=== PATIENT | female | born 2000 | race American Indian/Alaskan Native ===

== ENCOUNTER 2022-03-30 14:37 | Outpatient (CLI) | payer BC, MEDICAID ==
[2022-03-30] MEDS ORDERED: LACTATED RINGERS 1,000 ML IV ONE (15:04)
[2022-03-30 15:42] LABS: Hematocrit 29.2 % (30.3-42.9); Hemoglobin 9.9 gm/dl (10.1-14.3); Mean Corpuscular HGB Conc 34 % (30-34); Mean Corpuscular Volume 89 fl (79-97); Platelet Count 219 K/mm3 (140-440); Red Blood Count 3.27 M/mm3 (3.65-5.03); Red Cell Distribution Width 12.9 % (13.2-15.2)
[2022-03-30 15:58] LABS: Alanine Aminotransferase 11 units/L (7-56)
[2022-03-30] MEDS ORDERED: ACETAMINOPHEN 500 MG TAB PO ONE (16:00)
[2022-03-30 16:03] LABS: Bacteria,Urine 4+ /HPF (Negative)
[2022-03-30 16:07] LABS: Bilirubin,Urine Negative (Negative); Blood,Urine Negative (Negative); Color,Urine Straw (Yellow); PH,Urine 7.5 (5.0-7.0); Protein,Urine <15 mg/dL mg/dL (Negative); Urobilinogen,Urine < 2.0 mg/dL (<2.0)
[2022-03-30 16:49] VITALS: BP 116/63
== END 2022-03-30 17:12 | disposition home or self-care (01) ==
LOC: APU 14:37 → TRG 14:37
PROVIDERS: ATTEND Obstetrics & Gynecology
DX: O13.3 Gestational [pregnancy-induced] hypertension without significant proteinuria, third trimester (principal); Z3A.34 34 weeks gestation of pregnancy
CPT/HCPCS: 36415; 59025; 81001; 82565; 83615; 84450; 84460; 84550; 85027; 87086

== ENCOUNTER 2022-05-08 08:33 | Inpatient (IN) | payer BC, MEDICAID ==
--- NOTE | 2022-05-08 08:55 | History and Physical Report ---
History of Present Illness Date of examination: 05/08/22 Date of admission: 05/08/2022 Chief complaint: IOL History of present illness: Pt is a @ 39.4 wks who presented to L&D for IOL d/t cHTN. She has been followed by [facility]. Her blood pressures have been normotensive. She had a baseline 24 hr urine on 10/02/21 that resulted as 106. Her last BPP and growth scan on May 04: BPP 8/8, EFW 32% (7-2). Also there was pyelectasis noted and will need f/u with urology after delivery. EDC Confirmation: 05/11/2022 Gestational Age: 39.4 weeks on admission Past History : 2 Term Births: 1 Premature Births: 0 Living Children: 1 Para: 1 Mult. Births: 0 Prev : 0 Aborta: 0 Elect. Ab: 0 Spont. Ab: 0 Ectopics: 0 She # 1 Delivery date: 2018 Weeks Gestation: 39 labor: no Delivery type: Hours of labor: ? Anesthesia type: epidural Delivery location: [place] Sex: Female weight: 6-9 Comments: Possible pre eclampsia? Past Medical History: Reviewed and updated today: Hypertension per [facility] Past Surgical History: Reviewed and updated today: negative Family History Summary: First Degree Blood Relative - Has No Known Family History - Entered On: 10/28/2021 Social History: Patient is single Smoking History: Patient has never smoked. Risk Factors: Smoked Tobacco Use: Never smoker Smokeless Tobacco Use: Never Counseled to Quit/Cut Down: yes Passive Smoke Exposure: no HIV High Risk Behavior: low risk Caffeine Use: 0 drinks per day Exercise: no Seatbelt Use: preg-work counselor % Sun Exposure: occasionally Family History Risk Factors: Family History of WA in 1 Female Relative Age < 65: no Family History of [place] in 1 Male Relative Age < 55: no No Dietary Counseling Reason: pn yes PAP Smear History: Date of Last PAP Smear: 09/30/2021 Results: Normal Alcohol Use: no Past Medical History Anesthesia Complications: negative Anemia: negative Autoimmune Disorder: negative Bleeding Disorder: negative Blood Transfusions: negative Breast Disease: negative Diabetes: negative Heart Disease: negative Hypertension: negative Hepatitis/Liver Disease: negative Kidney Disease/UTI: negative Neurologic/Epilepsy/Migraines: negative Phlebitis/Varicosities: negative Psychiatric: negative Pulmonary Disease/Asthma: negative Thyroid Disease: negative Hospitalizations: negative Surgery (Non-line assigner): negative Abnormal PAP: negative MARTHA Exposure: negative Infertility: negative Uterine Anomaly: negative Uterine Surgery (not C/S): negative Other Gynecologic Problems: negative Social Hx: Patient is single Smoking History: Patient has never smoked. Infection History Hx of STD: none HIV Risk Eval: low risk Hepatitis B Risk Eval: low risk Personal hx. of genital herpes: no Partner hx. of genital herpes: no Rash, Viral, or Febrile illness since last LMP? no Varicella/Chicken Pox Status: No TB Risk: no Genetic History Congenital Heart Defect: Mom: no Dad: no Audi Disease: Mom: no Dad: no Thalassemia Mom: no Dad: no Neural Tube Defect Mom: no Dad: no Down's Syndrome Mom: no Dad: no Rolly-Sachs Mom: no Dad: no Sickle Cell Disease/Trait Mom: no Dad: no Hemophilia Mom: no Dad: no Muscular Dystrophy Mom: no Dad: no Cystic Fibrosis Mom: no Dad: no Alireza Chorea Mom: no Dad: no Mental Retardation Mom: no Dad: no Fragile X Mom: no Dad: no Other Genetic/Chromosomal Disorder Mom: no Dad: no Child w/other defect Mom: no Dad: no Enviromental Exposures Xray Exposure: no Medication, drug, or alcohol use since LMP: no Chemical/Other Exposure: no Exposure to Cat Liter: no Hx of Parvovirus (Fifth Disease): no Occupational Exposure to Children: none Current Allergies: No known allergies Past History Past Medical History: hypertension, other (Pre-eclampsia) Past Surgical History: no surgical history Family/Genetic History: none Social history: no significant social history - Obstetrical History Expected Date of Delivery: 05/11/22 Actual Gestation: 39 Week(s) 4 Day(s) : 2 Para: 1 Hx # Term Pregnancies: 1 Number of Pregnancies: 0 Spontaneous Abortions: 0 Induced : 0 Number of Living Children: 1 Medications and Allergies Allergies Allergy/AdvReac Type Severity Reaction Status Date / Time No Known Allergies Allergy Verified 05/08/22 12:03 Review of Systems All systems: negative - Physical Exam Cardiovascular: Regular rate Lungs: Positive: Normal air movement Abdomen: Positive: normal appearance, soft Uterus: Positive: enlarged (Normal size for 39.4 wk gestation.) Extremities: Positive: normal - Obstetrical FHR: category 1 Uterine Contraction Monitor Mode: External Cervical Dilatation: 1 (Per RN taking care of patient. ) Cervical Effacement Percentage: 50 station: -3 Uterine Contraction Pattern: Absent Results Result Diagrams: 05/08/22 12:50 05/08/22 12:50 All other labs normal. GBS NEGATIVE Blood Type: O (09/30/2021) Rh Type: positive (09/30/2021) Rh Antibody Screen: negative (09/30/2021) Hgb: 12 (09/30/2021) Hct: 36 (09/30/2021) Platelets: 275 (09/30/2021) Rubella: immune (09/30/2021) RPR: nonreactive (09/30/2021) Hep B Surface Antigen: negative (09/30/2021) HIV: negative (09/30/2021) Pap Smear: Normal (09/30/2021) Varicella Ab: positive (09/30/2021) Hepatitis C: negative (09/30/2021) Uric acid: 2.9 (09/30/2021) 24 hour urine result from 10/02/2021: 106 Assessment and Plan A: 21 y.o. @ 39.4 wks, IOL d/t cHTN. - Patient Problems (1) Hypertension affecting Current Visit: Yes Status: Acute Qualifiers: Trimester: third trimester Qualified Code(s): O16.3 - Unspecified maternal hypertension, third trimester Plan to address problem: Obtain Pre-eclampsia labs. Monitor blood pressures. Continue to monitor for s/sx of Pre-eclampsia. Anti-hypertensive medications and magnesium infusion to be considered if persistent severe range blood pressures and pt becomes symptomatic. (2) with 39 completed weeks gestation Current Visit: Yes Status: Acute Plan to address problem: Admit to Labor and Delivery. Initiate IV. Draw admission labs. Pain management: IV pain medication and epidural when pt desires. Anticipate . (3) Pyelectasis of fetus on ultrasound Current Visit: Yes Status: Acute Plan to address problem: will need urology f/u after delivery. NICU called and aware.
[2022-05-08] MEDS ORDERED: miSOPROStol 200 MCG TAB PR PRN (09:00)
[2022-05-08] MEDS ORDERED: BUTORPHANOL 2 MG/1 ML INJ IV PRN (09:00)
[2022-05-08] MEDS ORDERED: OXYTOCIN 10 UNIT/1 ML INJ IM PRN (09:00)
[2022-05-08] MEDS ORDERED: OXYTOCIN DRIP 30 UNITS/500 ML BAG IV SCH ×2 (09:00)
[2022-05-08] MEDS ORDERED: ACETAMINOPHEN 325 MG TAB PO PRN (09:00)
[2022-05-08] MEDS ORDERED: NALOXONE 0.4 MG/1 ML INJ IV PRN (09:00)
[2022-05-08] MEDS ORDERED: TERBUTALINE 1 MG/1 ML INJ SUB-Q PRN (09:00)
[2022-05-08] MEDS ORDERED: LIDOCAINE (2%) 20 MG/1 ML VIAL 20 ML MDV INFILTRATI NR (09:00)
[2022-05-08] MEDS ORDERED: ONDANSETRON 4 MG/2 ML INJ IV PRN (09:00)
[2022-05-08] MEDS ORDERED: PROMETHAZINE 25 MG TAB PO PRN (09:00)
[2022-05-08] MEDS ORDERED: LACTATED RINGERS 1,000 ML IV SCH (09:00)
[2022-05-08] MEDS ORDERED: ePHEDrine SULFATE 50 MG/1 ML INJ IV PRN (09:00)
[2022-05-08] MEDS ORDERED: CARBOPROST TROMETHAMINE 250 MCG/1 ML INJ IM PRN (09:00)
[2022-05-08] MEDS ORDERED: LOPERAMIDE 2 MG CAP PO PRN (09:00)
[2022-05-08 13:06] LABS: Hemoglobin 9.1 gm/dl (10.1-14.3); Mean Corpuscular HGB Conc 35 % (30-34); Mean Corpuscular Volume 86 fl (79-97); Platelet Count 246 K/mm3 (140-440); Red Blood Count 3.01 M/mm3 (3.65-5.03)
[2022-05-08 13:10] LABS: Bacteria,Urine 1+ /HPF (Negative); Mucus,Urine FEW /HPF; RBC,Urine < 1.0 /HPF (0.0-6.0)
--- NOTE | 2022-05-08 13:16 | Event Note ---
Date: 05/08/22 Explained IOL process and why delayed. There have been several emergencies on L&D today. Will allow pt to eat meal and place Cervidil at 1700. Her cervical exam /. Pt verbalized understanding and agrees to this plan. RN getting patient a meal to eat.
[2022-05-08 13:29] LABS: Alanine Aminotransferase 12 units/L (7-56); Uric Acid 4.6 mg/dL (3.5-7.6)
[2022-05-08 13:40] LABS: Bilirubin,Urine Negative (Negative); Blood,Urine Negative (Negative); Color,Urine Straw (Yellow); Urobilinogen,Urine < 2.0 mg/dL (<2.0)
[2022-05-08] MEDS ORDERED: DINOPROSTONE 10 MG VAG SUPP VG ONE (17:00)
[2022-05-08] MEDS ORDERED: MINERAL OIL 30 ML ORAL LIQD PO PRN (22:00)
[2022-05-09] MEDS: fentaNYL 100 MCG/2 ML INJ IV PRN ×2 (01:03→03:17)
[2022-05-09] MEDS ORDERED: LACTATED RINGERS 1,000 ML IV SCH (04:45)
[2022-05-09] MEDS ORDERED: NALOXONE 0.4 MG/1 ML INJ IV PRN (05:08)
[2022-05-09] MEDS ORDERED: ePHEDrine SULFATE 50 MG/1 ML INJ IV PRN (05:08)
--- NOTE | 2022-05-09 05:37 | Anesthesia Consultation ---
Anesthesia Consult and Med Hx - Airway Anesthetic Teeth Evaluation: Good ROM Head & Neck: Adequate Mental/Hyoid Distance: Adequate Mallampati Class: Class II Intubation Access Assessment: Probably Good - Pulmonary Exam CTA: Yes - Cardiac Exam Cardiac Exam: RRR - Pre-Operative Health Status ASA Pre-Surgery Classification: ASA2 Proposed Anesthetic Plan: Epidural - Pulmonary Hx Smoking: Yes Hx Asthma: No - Cardiovascular System Hx Hypertension: Yes (2018 preeclampasia) - Central Nervous System Hx Seizures: No Hx Psychiatric Problems: No - Endocrine Hx Renal Disease: No Hx Hypothyroidism: No Hx Hyperthyroidism: No - Hematic Hx Anemia: No Hx Sickle Cell Disease: No - Other Systems Hx Alcohol Use: No
--- NOTE | 2022-05-09 05:38 | Anesthesia Day of Surgery ---
Anesthesia Day of Surgery - Day of Surgery Patient Examined: Yes Patient H&P Reviewed: Yes Patient is NPO: Yes Beta Blockers: No Cardiac Clearance: No Pulmonary Clearance: No Deuce's Test: N/A
[2022-05-09] MEDS ORDERED: fentaNYL-BUPIV 2 MCG/ML-0.125% 200 MCG/100 ML BAG EPIDURAL SCH (06:00)
--- NOTE | 2022-05-09 07:49 | Progress Note ---
Assessment and Plan A: 21 y.o. @ 39.5 wks. IOL d/t cHTN. AROM. - Patient Problems (1) Hypertension affecting Current Visit: Yes Status: Acute Qualifiers: Trimester: third trimester Qualified Code(s): O16.3 - Unspecified maternal hypertension, third trimester Plan to address problem: Continue to monitor blood pressures. Continue to monitor for s/sx of Pre-eclampsia. (2) with 39 completed weeks gestation Current Visit: Yes Status: Acute Plan to address problem: Continue to monitor progress of labor. Will consider Pitocin if contractions space out. (3) Pyelectasis of fetus on ultrasound Current Visit: Yes Status: Acute Plan to address problem: NICU aware. Subjective - Subjective Date of service: 05/09/22 Principal diagnosis: IUP @ 39.5 wks, IOL d/t cHTN, labor Interval history: Pt comfortable with epidural. Discussed AROM and pt agrees to AROM at this time. Pt denies s/sx of Pre-eclampsia. Objective - Vital Signs Vital Signs: Vital Signs - 12hr 05/08/22 05/08/22 05/08/22 19:49 19:54 19:59 Temperature Pulse Rate 116 H 109 H 107 H Respiratory Rate Blood Pressure Blood Pressure [Right] O2 Sat by Pulse 96 96 97 Oximetry O2 Sat by Pulse Oximetry [ Bilateral] 05/08/22 05/08/22 05/08/22 20:04 20:09 20:14 Temperature Pulse Rate 106 H 106 H 111 H Respiratory Rate Blood Pressure Blood Pressure [Right] O2 Sat by Pulse 97 97 97 Oximetry O2 Sat by Pulse Oximetry [ Bilateral] 05/08/22 05/08/22 05/08/22 20:17 20:18 20:19 Temperature 98.5 F Pulse Rate 113 H 110 H Respiratory 17 Rate Blood Pressure 143/96 Blood Pressure [Right] O2 Sat by Pulse 97 96 Oximetry O2 Sat by Pulse 96 Oximetry [ Bilateral] 05/08/22 05/08/22 05/08/22 20:23 20:24 20:29 Temperature Pulse Rate 102 H 108 H 107 H Respiratory Rate Blood Pressure 131/73 Blood Pressure [Right] O2 Sat by Pulse 97 96 Oximetry O2 Sat by Pulse Oximetry [ Bilateral] 05/08/22 05/08/22 05/08/22 20:34 20:47 20:48 Temperature Pulse Rate 108 H 114 H 122 H Respiratory Rate Blood Pressure Blood Pressure [Right] O2 Sat by Pulse 96 95 94 Oximetry O2 Sat by Pulse Oximetry [ Bilateral] 05/08/22 05/08/22 05/08/22 20:52 20:57 21:02 Temperature Pulse Rate 107 H 115 H 109 H Respiratory Rate Blood Pressure Blood Pressure [Right] O2 Sat by Pulse 96 97 96 Oximetry O2 Sat by Pulse Oximetry [ Bilateral] 05/08/22 05/08/22 05/08/22 21:07 21:12 21:17 Temperature Pulse Rate 103 H 107 H 108 H Respiratory Rate Blood Pressure Blood Pressure [Right] O2 Sat by Pulse 96 97 97 Oximetry O2 Sat by Pulse Oximetry [ Bilateral] 05/08/22 05/08/22 05/08/22 21:22 21:27 21:32 Temperature Pulse Rate 104 H 100 H 107 H Respiratory Rate Blood Pressure Blood Pressure [Right] O2 Sat by Pulse 96 97 96 Oximetry O2 Sat by Pulse Oximetry [ Bilateral] 05/08/22 05/08/22 05/08/22 21:37 21:42 21:44 Temperature Pulse Rate 101 H 102 H 97 H Respiratory Rate Blood Pressure Blood Pressure [Right] O2 Sat by Pulse 97 96 94 Oximetry O2 Sat by Pulse Oximetry [ Bilateral] 05/08/22 05/08/22 05/08/22 21:48 21:53 21:55 Temperature Pulse Rate 109 H 101 H 97 H Respiratory Rate Blood Pressure Blood Pressure [Right] O2 Sat by Pulse 97 95 94 Oximetry O2 Sat by Pulse Oximetry [ Bilateral] 05/08/22 05/08/22 05/08/22 21:58 22:03 22:06 Temperature Pulse Rate 100 H 101 H 91 H Respiratory Rate Blood Pressure Blood Pressure [Right] O2 Sat by Pulse 95 95 92 Oximetry O2 Sat by Pulse Oximetry [ Bilateral] 05/08/22 05/08/22 05/08/22 22:08 22:13 22:16 Temperature Pulse Rate 107 H 105 H 101 H Respiratory Rate Blood Pressure Blood Pressure [Right] O2 Sat by Pulse 95 95 94 Oximetry O2 Sat by Pulse Oximetry [ Bilateral] 05/08/22 05/08/22 05/08/22 22:18 22:23 22:26 Temperature Pulse Rate 94 H 97 H 97 H Respiratory Rate Blood Pressure Blood Pressure [Right] O2 Sat by Pulse 95 95 94 Oximetry O2 Sat by Pulse Oximetry [ Bilateral] 05/08/22 05/08/22 05/08/22 22:28 22:33 22:38 Temperature Pulse Rate 96 H 95 H 91 H Respiratory Rate Blood Pressure Blood Pressure [Right] O2 Sat by Pulse 95 95 95 Oximetry O2 Sat by Pulse Oximetry [ Bilateral] 05/08/22 05/08/22 05/08/22 22:42 22:43 22:48 Temperature Pulse Rate 96 H 92 H 90 Respiratory Rate Blood Pressure Blood Pressure [Right] O2 Sat by Pulse 94 96 96 Oximetry O2 Sat by Pulse Oximetry [ Bilateral] 05/08/22 05/08/22 05/08/22 22:52 22:53 22:58 Temperature Pulse Rate 93 H 91 H 102 H Respiratory Rate Blood Pressure Blood Pressure [Right] O2 Sat by Pulse 94 95 96 Oximetry O2 Sat by Pulse Oximetry [ Bilateral] 05/08/22 05/08/22 05/08/22 22:59 23:03 23:08 Temperature Pulse Rate 108 H 88 92 H Respiratory Rate Blood Pressure Blood Pressure [Right] O2 Sat by Pulse 92 96 96 Oximetry O2 Sat by Pulse Oximetry [ Bilateral] 05/08/22 05/08/22 05/08/22 23:13 23:17 23:18 Temperature Pulse Rate 96 H 100 H 97 H Respiratory Rate Blood Pressure Blood Pressure [Right] O2 Sat by Pulse 96 94 95 Oximetry O2 Sat by Pulse Oximetry [ Bilateral] 05/08/22 05/08/22 05/08/22 23:23 23:25 23:36 Temperature Pulse Rate 98 H 92 H 104 H Respiratory Rate Blood Pressure Blood Pressure [Right] O2 Sat by Pulse 95 94 96 Oximetry O2 Sat by Pulse Oximetry [ Bilateral] 05/08/22 05/08/22 05/08/22 23:41 23:46 23:47 Temperature Pulse Rate 91 H 89 93 H Respiratory Rate Blood Pressure Blood Pressure [Right] O2 Sat by Pulse 95 94 94 Oximetry O2 Sat by Pulse Oximetry [ Bilateral] 05/08/22 05/08/22 05/08/22 23:51 23:53 23:56 Temperature Pulse Rate 97 H 95 H 88 Respiratory Rate Blood Pressure Blood Pressure [Right] O2 Sat by Pulse 96 94 96 Oximetry O2 Sat by Pulse Oximetry [ Bilateral] 05/09/22 05/09/22 05/09/22 00:01 00:03 00:06 Temperature Pulse Rate 92 H 95 H 96 H Respiratory Rate Blood Pressure Blood Pressure [Right] O2 Sat by Pulse 96 94 95 Oximetry O2 Sat by Pulse Oximetry [ Bilateral] 05/09/22 05/09/22 05/09/22 00:11 00:16 00:21 Temperature Pulse Rate 100 H 90 92 H Respiratory Rate Blood Pressure Blood Pressure [Right] O2 Sat by Pulse 96 95 96 Oximetry O2 Sat by Pulse Oximetry [ Bilateral] 05/09/22 05/09/22 05/09/22 00:26 00:28 00:31 Temperature Pulse Rate 88 101 H 89 Respiratory Rate Blood Pressure Blood Pressure [Right] O2 Sat by Pulse 95 94 95 Oximetry O2 Sat by Pulse Oximetry [ Bilateral] 05/09/22 05/09/22 05/09/22 00:36 00:41 00:46 Temperature Pulse Rate 92 H 88 95 H Respiratory Rate Blood Pressure Blood Pressure [Right] O2 Sat by Pulse 95 96 95 Oximetry O2 Sat by Pulse Oximetry [ Bilateral] 05/09/22 05/09/22 05/09/22 00:51 00:56 01:01 Temperature Pulse Rate 96 H 95 H 105 H Respiratory Rate Blood Pressure Blood Pressure [Right] O2 Sat by Pulse 96 97 96 Oximetry O2 Sat by Pulse Oximetry [ Bilateral] 05/09/22 05/09/22 05/09/22 01:06 01:07 01:11 Temperature Pulse Rate 92 H 90 90 Respiratory Rate Blood Pressure Blood Pressure [Right] O2 Sat by Pulse 95 93 96 Oximetry O2 Sat by Pulse Oximetry [ Bilateral] 05/09/22 05/09/22 05/09/22 01:16 01:21 01:24 Temperature Pulse Rate 93 H 88 97 H Respiratory Rate Blood Pressure Blood Pressure [Right] O2 Sat by Pulse 96 97 94 Oximetry O2 Sat by Pulse Oximetry [ Bilateral] 05/09/22 05/09/22 05/09/22 01:26 01:31 01:36 Temperature Pulse Rate 94 H 85 86 Respiratory Rate Blood Pressure Blood Pressure [Right] O2 Sat by Pulse 97 96 97 Oximetry O2 Sat by Pulse Oximetry [ Bilateral] 05/09/22 05/09/22 05/09/22 01:41 01:46 01:51 Temperature Pulse Rate 88 94 H 89 Respiratory Rate Blood Pressure Blood Pressure [Right] O2 Sat by Pulse 97 96 95 Oximetry O2 Sat by Pulse Oximetry [ Bilateral] 05/09/22 05/09/22 05/09/22 01:56 02:01 02:06 Temperature Pulse Rate 93 H 92 H 87 Respiratory Rate Blood Pressure Blood Pressure [Right] O2 Sat by Pulse 96 95 95 Oximetry O2 Sat by Pulse Oximetry [ Bilateral] 05/09/22 05/09/22 05/09/22 02:07 02:11 02:16 Temperature Pulse Rate 92 H 88 89 Respiratory Rate Blood Pressure Blood Pressure [Right] O2 Sat by Pulse 94 95 96 Oximetry O2 Sat by Pulse Oximetry [ Bilateral] 05/09/22 05/09/22 05/09/22 02:21 02:26 02:31 Temperature Pulse Rate 92 H 114 H 95 H Respiratory Rate Blood Pressure Blood Pressure [Right] O2 Sat by Pulse 96 97 96 Oximetry O2 Sat by Pulse Oximetry [ Bilateral] 05/09/22 05/09/22 05/09/22 02:36 02:41 02:43 Temperature Pulse Rate 103 H 93 H 99 H Respiratory Rate Blood Pressure Blood Pressure [Right] O2 Sat by Pulse 96 97 93 Oximetry O2 Sat by Pulse Oximetry [ Bilateral] 05/09/22 05/09/22 05/09/22 02:46 02:51 02:52 Temperature Pulse Rate 98 H 94 H 89 Respiratory Rate Blood Pressure Blood Pressure [Right] O2 Sat by Pulse 96 96 94 Oximetry O2 Sat by Pulse Oximetry [ Bilateral] 05/09/22 05/09/22 05/09/22 02:56 03:01 03:06 Temperature Pulse Rate 100 H 103 H 91 H Respiratory Rate Blood Pressure Blood Pressure [Right] O2 Sat by Pulse 97 96 98 Oximetry O2 Sat by Pulse Oximetry [ Bilateral] 05/09/22 05/09/22 05/09/22 03:10 03:11 03:20 Temperature 98.5 F Pulse Rate 107 H 97 H Respiratory 18 Rate Blood Pressure Blood Pressure [Right] O2 Sat by Pulse 98 98 97 Oximetry O2 Sat by Pulse Oximetry [ Bilateral] 05/09/22 05/09/22 05/09/22 03:23 03:25 03:30 Temperature Pulse Rate 101 H 99 H 94 H Respiratory Rate Blood Pressure Blood Pressure [Right] O2 Sat by Pulse 94 97 97 Oximetry O2 Sat by Pulse Oximetry [ Bilateral] 05/09/22 05/09/22 05/09/22 03:35 03:38 03:40 Temperature Pulse Rate 92 H 98 H 109 H Respiratory Rate Blood Pressure Blood Pressure [Right] O2 Sat by Pulse 96 92 97 Oximetry O2 Sat by Pulse Oximetry [ Bilateral] 05/09/22 05/09/22 05/09/22 03:45 03:50 03:54 Temperature Pulse Rate 88 89 99 H Respiratory Rate Blood Pressure Blood Pressure [Right] O2 Sat by Pulse 96 96 94 Oximetry O2 Sat by Pulse Oximetry [ Bilateral] 05/09/22 05/09/22 05/09/22 03:55 04:00 04:03 Temperature Pulse Rate 91 H 99 H 101 H Respiratory Rate Blood Pressure Blood Pressure [Right] O2 Sat by Pulse 96 97 90 Oximetry O2 Sat by Pulse Oximetry [ Bilateral] 05/09/22 05/09/22 05/09/22 04:05 04:10 04:12 Temperature Pulse Rate 91 H 108 H 98 H Respiratory Rate Blood Pressure Blood Pressure [Right] O2 Sat by Pulse 97 98 92 Oximetry O2 Sat by Pulse Oximetry [ Bilateral] 05/09/22 05/09/22 05/09/22 04:13 04:15 04:20 Temperature Pulse Rate 107 H 102 H 95 H Respiratory Rate Blood Pressure 144/76 Blood Pressure [Right] O2 Sat by Pulse 97 98 Oximetry O2 Sat by Pulse Oximetry [ Bilateral] 05/09/22 05/09/22 05/09/22 04:25 04:30 04:35 Temperature Pulse Rate 101 H 98 H 97 H Respiratory Rate Blood Pressure Blood Pressure [Right] O2 Sat by Pulse 96 99 98 Oximetry O2 Sat by Pulse Oximetry [ Bilateral] 05/09/22 05/09/22 05/09/22 04:37 04:40 04:45 Temperature Pulse Rate 97 H 85 92 H Respiratory Rate Blood Pressure Blood Pressure [Right] O2 Sat by Pulse 94 97 98 Oximetry O2 Sat by Pulse Oximetry [ Bilateral] 05/09/22 05/09/22 05/09/22 04:50 04:52 04:55 Temperature Pulse Rate 104 H 95 H 105 H Respiratory Rate Blood Pressure Blood Pressure [Right] O2 Sat by Pulse 98 94 98 Oximetry O2 Sat by Pulse Oximetry [ Bilateral] 05/09/22 05/09/22 05/09/22 04:58 05:00 05:04 Temperature Pulse Rate 102 H 101 H 102 H Respiratory Rate Blood Pressure Blood Pressure [Right] O2 Sat by Pulse 92 98 94 Oximetry O2 Sat by Pulse Oximetry [ Bilateral] 05/09/22 05/09/22 05/09/22 05:05 05:10 05:15 Temperature Pulse Rate 101 H 106 H 113 H Respiratory Rate Blood Pressure Blood Pressure [Right] O2 Sat by Pulse 96 95 99 Oximetry O2 Sat by Pulse Oximetry [ Bilateral] 05/09/22 05/09/22 05/09/22 05:20 05:24 05:25 Temperature Pulse Rate 107 H 106 H 102 H Respiratory Rate Blood Pressure 141/74 Blood Pressure [Right] O2 Sat by Pulse 98 97 Oximetry O2 Sat by Pulse Oximetry [ Bilateral] 05/09/22 05/09/22 05/09/22 05:27 05:30 05:33 Temperature Pulse Rate 102 H 90 103 H Respiratory Rate Blood Pressure 133/73 127/72 118/67 Blood Pressure [Right] O2 Sat by Pulse 97 Oximetry O2 Sat by Pulse Oximetry [ Bilateral] 05/09/22 05/09/22 05/09/22 05:35 05:36 05:40 Temperature Pulse Rate 111 H 94 H 90 Respiratory Rate Blood Pressure 118/67 78/49 Blood Pressure [Right] O2 Sat by Pulse 98 98 Oximetry O2 Sat by Pulse Oximetry [ Bilateral] 05/09/22 05/09/22 05/09/22 05:43 05:45 05:49 Temperature Pulse Rate 89 103 H 117 H Respiratory Rate Blood Pressure 120/68 119/71 104/52 Blood Pressure [Right] O2 Sat by Pulse 97 Oximetry O2 Sat by Pulse Oximetry [ Bilateral] 05/09/22 05/09/22 05/09/22 05:50 05:52 05:55 Temperature Pulse Rate 102 H 100 H 86 Respiratory Rate Blood Pressure 127/68 115/55 Blood Pressure [Right] O2 Sat by Pulse 100 97 Oximetry O2 Sat by Pulse Oximetry [ Bilateral] 05/09/22 05/09/22 05/09/22 05:58 06:00 06:05 Temperature Pulse Rate 105 H 94 H 100 H Respiratory Rate Blood Pressure 114/65 110/62 Blood Pressure [Right] O2 Sat by Pulse 99 99 Oximetry O2 Sat by Pulse Oximetry [ Bilateral] 05/09/22 05/09/22 05/09/22 06:10 06:15 06:16 Temperature Pulse Rate 107 H 94 H 100 H Respiratory Rate Blood Pressure 118/73 Blood Pressure [Right] O2 Sat by Pulse 100 97 Oximetry O2 Sat by Pulse Oximetry [ Bilateral] 05/09/22 05/09/22 05/09/22 06:20 06:25 06:30 Temperature Pulse Rate 93 H 98 H 90 Respiratory Rate Blood Pressure Blood Pressure [Right] O2 Sat by Pulse 96 98 98 Oximetry O2 Sat by Pulse Oximetry [ Bilateral] 05/09/22 05/09/22 05/09/22 06:32 06:35 06:40 Temperature Pulse Rate 94 H 85 97 H Respiratory Rate Blood Pressure 116/69 Blood Pressure [Right] O2 Sat by Pulse 98 97 Oximetry O2 Sat by Pulse Oximetry [ Bilateral] 05/09/22 05/09/22 05/09/22 06:45 06:47 06:50 Temperature Pulse Rate 98 H 96 H 107 H Respiratory Rate Blood Pressure 117/68 Blood Pressure [Right] O2 Sat by Pulse 96 99 Oximetry O2 Sat by Pulse Oximetry [ Bilateral] 05/09/22 05/09/22 05/09/22 06:55 06:56 07:00 Temperature Pulse Rate 112 H 91 H 104 H Respiratory Rate Blood Pressure Blood Pressure [Right] O2 Sat by Pulse 99 94 97 Oximetry O2 Sat by Pulse Oximetry [ Bilateral] 05/09/22 05/09/22 05/09/22 07:03 07:05 07:10 Temperature Pulse Rate 100 H 108 H 94 H Respiratory Rate Blood Pressure 117/61 Blood Pressure [Right] O2 Sat by Pulse 98 96 Oximetry O2 Sat by Pulse Oximetry [ Bilateral] 05/09/22 05/09/22 05/09/22 07:15 07:16 07:20 Temperature 97.5 F L Pulse Rate 91 H 97 H 95 H Respiratory 16 Rate Blood Pressure 121/65 Blood Pressure 121/65 [Right] O2 Sat by Pulse 99 98 Oximetry O2 Sat by Pulse 99 Oximetry [ Bilateral] 05/09/22 05/09/22 05/09/22 07:25 07:30 07:32 Temperature Pulse Rate 90 124 H 109 H Respiratory Rate Blood Pressure 120/76 Blood Pressure [Right] O2 Sat by Pulse 99 99 Oximetry O2 Sat by Pulse Oximetry [ Bilateral] 05/09/22 05/09/22 07:35 07:40 Temperature Pulse Rate 115 H 105 H Respiratory Rate Blood Pressure Blood Pressure [Right] O2 Sat by Pulse 95 97 Oximetry O2 Sat by Pulse Oximetry [ Bilateral] - Exam Narrative Exam: AROM for clear fluid. Blood pressure ranges have been 110-125/56-76. Cardiovascular: Regular rate Lungs: Normal air movement Abdomen: Present: normal appearance, soft Vulva: both: normal Uterus: Present: normal FHR: category 1 Uterine Contraction Monitor Mode: External Cervical Dilatation: 5.5 Cervical Effacement Percentage: 70 station: -2 Uterine Contraction Pattern: Regular Uterine Tone Measurement Phase: Resting Uterine Contraction Intensity: Moderate - Labs Labs: Abnormal Labs 05/08/22 05/08/22 12:50 12:50 RBC 3.01 L Hgb 9.1 L Hct 26.0 L MCHC 35 H RDW 13.0 L Creatinine 0.5 L Lactate Dehydrogenase 221 H Laboratory Results - last 24 hr 05/08/22 05/08/22 05/08/22 12:43 12:50 12:50 WBC 7.9 RBC 3.01 L Hgb 9.1 L Hct 26.0 L MCV 86 MCH 30 MCHC 35 H RDW 13.0 L Plt Count 246 Creatinine Estimated GFR Uric Acid AST ALT Lactate Dehydrogenase Urine Color Straw Urine Turbidity Cloudy Urine pH 6.0 Ur Specific [place] 1.025 Urine Protein 30 mg/dl Urine Glucose (UA) Negative Urine Ketones Negative Urine Blood Negative Urine Nitrite Negative Ur Reducing Substances Not Reportable Urine Bilirubin Negative Urine Ictotest Not Reportable Urine Urobilinogen < 2.0 Ur Leukocyte Esterase Negative Urine WBC (Auto) 1.0 Urine RBC (Auto) < 1.0 U Epithel Cells (Auto) 1.0 Urine Bacteria (Auto) 1+ Urine Mucus Few Syphilis IgG/IgM Ab SARS-CoV-2 (PCR) Negative Blood Type Antibody Screen 05/08/22 05/08/22 05/08/22 12:50 12:50 12:50 WBC RBC Hgb Hct MCV MCH MCHC RDW Plt Count Creatinine 0.5 L Estimated GFR > 60 Uric Acid 4.6 AST 19 ALT 12 Lactate Dehydrogenase 221 H Urine Color Urine Turbidity Urine pH Ur Specific [place] Urine Protein Urine Glucose (UA) Urine Ketones Urine Blood Urine Nitrite Ur Reducing Substances Urine Bilirubin Urine Ictotest Urine Urobilinogen Ur Leukocyte Esterase Urine WBC (Auto) Urine RBC (Auto) U Epithel Cells (Auto) Urine Bacteria (Auto) Urine Mucus Syphilis IgG/IgM Ab Nonreactive SARS-CoV-2 (PCR) Blood Type O POSITIVE Antibody Screen Negative
--- NOTE | 2022-05-09 10:32 | Event Note ---
Date: 05/09/22 Received a call from RN that patient was more uncomfortable and feeling more intense pressure. Upon assessment, was found to be 10/100/+1. Tried a trial of pushing and it was not effective. Pt repositioned in bed and will try trial of pushing in 15 minutes.
--- NOTE | 2022-05-09 11:29 | Procedure Note ---
OB Delivery Note - Delivery Date of Delivery: 05/09/22 Slab Grinder: EMILI FLORES Estimated blood loss: 200cc - Vaginal Delivery presentation: vertex Delivery position: OA Intrapartum events: other(please specify) (cHTN) Delivery induction: cervidil Delivery augmentation: rupture of membranes Delivery monitor: external FHT, external uterine Route of delivery: Delivery placenta: spontaneous Delivery cord: 3 umbilical vessels Episiotomy: none Delivery laceration: 1st degree (Hemostatic not repaired. ) Anesthesia: epidural Delivery comments: of viable male. to mother's abdomen for skin to skin. Cord clamped after cessation of pulse. Cut by FOC. Infant handed to ELOISE RN for evaluation. Spontaneous delivery of placenta, intact, complete, 3 vessels noted. Perineum and vagina inspected, 1st degree noted. It is hemostatic and was not repaired. Fundus firm, bleeding WNL. Apgars 8,9. weight 7-13. Sponges and instruments counted X2 with RN and correct X2. Infant and mother left in stable condition in care of RN. - A at 1 minute: 8 at 5 minutes: 9 Gender: Male (7-13)
[2022-05-09] MEDS ORDERED: ONDANSETRON 4 MG/2 ML INJ IV PRN (17:12)
[2022-05-09] MEDS ORDERED: PROMETHAZINE 25 MG TAB PO PRN (17:12)
[2022-05-09] MEDS ORDERED: miSOPROStol 100 MCG TAB PR PRN (17:12)
[2022-05-09] MEDS ORDERED: diphenhydrAMINE 25 MG CAP PO PRN (17:12)
[2022-05-09] MEDS ORDERED: ACETAMINOPHEN 325 MG TAB PO PRN (17:12)
[2022-05-09] MEDS ORDERED: OXYTOCIN DRIP 30 UNITS/500 ML BAG IV SCH (17:12)
[2022-05-09] MEDS ORDERED: PROMETHAZINE 25 MG RECT SUPP PR PRN (17:12)
[2022-05-09] MEDS ORDERED: oxyCODONE /ACETAMINOPHEN 5-325MG TAB PO PRN (17:12)
[2022-05-09] MEDS ORDERED: LANOLIN/ZINC/DIMETHICONE (LANSINOH) 7 GM TP PRN ×2 (17:12)
[2022-05-09] MEDS ORDERED: WITCH HAZEL/ GLYCERIN PAD TP PRN (17:12)
[2022-05-09] MEDS ORDERED: BENZOCAINE/MENTHOL 20/0.5% TOP SPRAY 56 GM TP PRN (17:12)
[2022-05-09] MEDS ORDERED: MAGNESIUM HYDROXIDE (MOM) ORAL LIQD UDC PO PRN (17:12)
[2022-05-09] MEDS: IBUPROFEN 800 MG TAB PO SCH (18:15)
[2022-05-10] MEDS: IBUPROFEN 800 MG TAB PO SCH ×4 (06:20→23:48)
[2022-05-10 07:05] LABS: Hematocrit 23.5 % (30.3-42.9); Hemoglobin 7.6 gm/dl (10.1-14.3)
[2022-05-10] MEDS: PRENATAL VIT27-FE FUMARATE-FOLIC ACID VIT TAB PO SCH (11:04)
[2022-05-10] MEDS: DOCUSATE SODIUM 100 MG CAP PO SCH ×3 (11:04→21:35)
[2022-05-10] MEDS ORDERED: TETANUS,DIPH,PERTUSS(ACELL) VACCINE 0.5 ML SYRINGE IM ONE (11:32)
--- NOTE | 2022-05-10 11:36 | Progress Note ---
Assessment and Plan A: 21 y.o. s/p , cHTN. - Patient Problems (1) Hypertension in , essential, condition Current Visit: Yes Status: Acute Plan to address problem: Blood pressure ranges have been 140's/80-90's - Consulted with Dr. Arriaga - Labetalol 200mg BID added. - Will continue to monitor blood pressures after medication started. - Will continue to monitor for s/sx of Pre-eclampsia. (2) (normal spontaneous vaginal delivery) Current Visit: Yes Status: Acute Plan to address problem: Continue with care. Anticipate discharge home on 05/11. Subjective - Subjective Date of service: 05/10/22 Principal diagnosis: s/p Hx of cHTN Interval history: Pt denies LATIF, blurred vision, spots before her eyes, chest pain, shortness of breath, and upper abdominal pain. We discussed starting Labetalol d/t blood pressures being 140's/80-90's. Pt agrees to plan and verbalized understanding. Patient reports: appetite normal, voiding normally, pain well controlled, flatus, ambulating normally [place]: doing well Objective - Vital Signs Latest vital signs: Vital Signs Temp Pulse Resp BP BP Pulse Ox Pulse Ox 05/10/22 11:04 70 137/81 05/10/22 09:16 97.4 F L 98 H 18 134/84 96 05/10/22 08:35 100 05/10/22 07:05 18 05/10/22 06:20 18 05/10/22 01:00 18 05/10/22 00:55 97.4 F L 92 H 18 137/79 97 05/10/22 00:00 18 05/09/22 21:54 18 05/09/22 20:54 20 100 05/09/22 20:50 98.5 F 100 H 20 142/79 96 05/09/22 19:15 18 05/09/22 17:11 98.1 F 98 H 18 142/86 97 05/09/22 14:55 98.7 F 112 H 20 128/78 97 97 05/09/22 14:05 111 H 98 05/09/22 14:00 113 H 98 05/09/22 13:55 107 H 99 05/09/22 13:50 109 H 98 05/09/22 13:46 103 H 144/85 05/09/22 13:45 110 H 99 05/09/22 13:40 108 H 99 05/09/22 13:35 115 H 97 05/09/22 13:31 107 H 147/88 05/09/22 13:30 111 H 97 05/09/22 13:25 107 H 97 05/09/22 13:20 107 H 99 05/09/22 13:16 107 H 142/85 05/09/22 13:15 106 H 98 05/09/22 13:10 111 H 100 05/09/22 13:05 103 H 100 05/09/22 13:00 101 H 99 05/09/22 12:55 98 H 98 05/09/22 12:50 105 H 98 05/09/22 12:47 104 H 141/91 05/09/22 12:45 108 H 97 05/09/22 12:40 101 H 98 05/09/22 12:35 104 H 98 05/09/22 12:31 100 H 142/80 05/09/22 12:30 97 H 99 05/09/22 12:25 102 H 99 05/09/22 12:20 100 H 98 05/09/22 12:16 102 H 134/75 05/09/22 12:15 109 H 99 05/09/22 12:10 104 H 98 05/09/22 12:05 101 H 98 05/09/22 12:01 112 H 143/88 05/09/22 12:00 104 H 99 05/09/22 11:55 108 H 99 05/09/22 11:50 99 H 98 05/09/22 11:46 100 H 147/78 05/09/22 11:45 99 H 99 05/09/22 11:40 95 H 98 Intake and Output 05/09/22 05/10/22 05/10/22 22:59 06:59 14:59 Intake Total 480 Output Total 800 300 Balance -800 180 Intake: Intake, Free Water 480 Output: Urine 800 300 Void 800 300 Other: Total, Output Amount 200 300 # Voids Void 1 1 - Exam Breasts: Present: deferred Cardiovascular: Present: Regular rate Lungs: Present: Normal air movement Abdomen: Present: normal appearance, soft Vulva: both: normal Uterus: Present: normal Extremities: Present: normal Deep Tendon Reflex Grade: Normal +2 - Labs Labs: Abnormal lab results 05/09/22 Range/Units 06:44 Hgb 7.6 L (10.1-14.3) gm/dl Hct 23.5 L (30.3-42.9) %
[2022-05-11] MEDS: IBUPROFEN 800 MG TAB PO SCH (05:25)
--- NOTE | 2022-05-11 08:22 | Discharge Summary ---
Providers - Providers Date of Admission: 05/08/22 08:35 Date of discharge: 05/11/22 (Desires discharge) Attending physician: HITESH MISTRY Primary care physician: HITESH MISTRY Hospitalization Reason for admission: Induction of Labor Condition: Good Pertinent studies: Post delivery H&H 7.6/23.5; Asymptomatic anemia d/t acute blood loss Procedures: Hospital course: Uncomplicated and course Disposition: 01 HOME / SELF CARE / HOMELESS Final Discharge Diagnosis (Prints w/discharge instructions): Vaginal Time spent for discharge: 20 minutes - Discharge Diagnoses (1) Hypertension affecting Status: Acute Qualifiers: Trimester: third trimester Qualified Code(s): O16.3 - Unspecified maternal hypertension, third trimester (2) (normal spontaneous vaginal delivery) Status: Acute Core Measure Documentation - Palliative Care Palliative Care/ Comfort Measures: Not Applicable - Core Measures Any of the following diagnoses?: none Exam - Physical Exam Narrative exam: Fundus firm 2 below U; locia scant and "getting less" per patient. Denies LATIF, b lurry vision. Breast and bottle feeding well. - Constitutional Vitals: Temp Pulse Resp BP Pulse Ox 98.2 F 77 20 117/77 98 05/11/22 04:41 05/11/22 04:41 05/11/22 04:41 05/11/22 04:41 05/11/22 05:24 General appearance: Present: no acute distress - EENT Eyes: Present: EOM intact ENT: hearing intact - Neck Neck: Present: normal ROM - Respiratory Respiratory effort: normal - Cardiovascular Rhythm: regular - Extremities Extremities: No edema, Full ROM - Abdominal General gastrointestinal: Present: soft, non-tender Female genitourinary: Present: normal - Integumentary Integumentary: Present: clear, warm, dry - Musculoskeletal Musculoskeletal: gait normal, strength equal bilaterally - Psychiatric Psychiatric: appropriate mood/affect, intact judgment & insight - Neurologic Neurologic: CNII-XII intact, moves all extremities Plan Activity: no restrictions Diet: regular Follow up with: HITESH MISTRY MD [Primary Care Provider] - 7 Days (Congratulations! Please call [phone] to schedule your sons circumcision in 1 week and your blood pressure check in 1 week. Bring EMLA cream to your son's visit and wait for instructions. Please call with any questions or concerns. ) Prescriptions: Lidocain2.5%/Prilocai2.5% [Emla] 1 applic TP ONCE #1 tube Ferrous Sulfate [Feosol 325 MG tab] 325 mg PO BID #60 tablet labetaloL [Labetalol 200mg TAB] 200 mg PO BID #60 tab Ibuprofen [Motrin] 800 mg PO Q8HR PRN #30 tablet PRN Reason: Pain, Moderate (4-6)
[2022-05-11 09:22] VITALS: BP 129/85
[2022-05-11] MEDS: DOCUSATE SODIUM 100 MG CAP PO SCH (10:10)
[2022-05-11] MEDS: PRENATAL VIT27-FE FUMARATE-FOLIC ACID VIT TAB PO SCH (10:10)
--- NOTE | 2022-05-13 09:28 | Post Anesthesia Evaluation ---
- Post Anesthesia Evaluation Patient Participated: No Airway Patent: Yes Stable Respiratory Function: Yes Nausea/Vomiting: No Temp > 96.8F: Yes Pain Manageable: Yes Adequeate Hydration: Yes Anesthesia Complications: No Block Receding Appropriately: Yes Patient on Ventilator: No
== END 2022-05-11 15:45 | disposition home or self-care (01) | DRG 806 ==
LOC: TRG 08:33 → LD 08:34 → TRG 09:02 → OB 05-09 14:47
PROVIDERS: ADMIT Obstetrics & Gynecology; ATTEND Obstetrics & Gynecology
PROC: 10E0XZZ Delivery of Products of Conception, External Approach (ICD-10-PCS; principal; 2022-05-09)
PROC: 3E0P7VZ Introduction of Hormone into Female Reproductive, Via Natural or Artificial Opening (ICD-10-PCS; 2022-05-09)
PROC: 3E0R3BZ Introduction of Anesthetic Agent into Spinal Canal, Percutaneous Approach (ICD-10-PCS; 2022-05-09)
PROC: 00HU33Z Insertion of Infusion Device into Spinal Canal, Percutaneous Approach (ICD-10-PCS; 2022-05-09)
PROC: 3E0234Z Introduction of Serum, Toxoid and Vaccine into Muscle, Percutaneous Approach (ICD-10-PCS; 2022-05-10)
DX: O10.92 Unspecified pre-existing hypertension complicating childbirth (principal); D62 Acute posthemorrhagic anemia; Z37.0 Single live birth; Z3A.39 39 weeks gestation of pregnancy; O70.0 First degree perineal laceration during delivery; O90.81 Anemia of the puerperium; Z23 Encounter for immunization
CPT/HCPCS: 36415; 81001; 82565; 83615; 84450; 84460; 84550; 85014; 85018; 85027; 86592; 86850; 86900; 86901; G0378; J3490; J3010; J7120; U0003